=== PATIENT | female | born 1985 | race African-American/Black ===

== ENCOUNTER 2022-12-16 13:03 | Emergency (ER) | payer MEDICAID, OTHER, SELFPAY ==
--- NOTE | ~2022-12-16 | US_ITS ---
EXAMINATION: US ABDOMEN LIMITED CLINICAL INFORMATION: Right upper quadrant pain. COMPARISON: None available. TECHNIQUE: Real-time imaging of the right upper quadrant abdominal viscera. FINDINGS: PANCREAS: Normal. LIVER: Normal. The liver is normal in size. The liver contour is normal. Parenchymal echogenicity is normal. No focal hepatic lesion. There is no intrahepatic biliary duct dilatation seen. GALLBLADDER: Normal. The gallbladder is physiologically distended without evidence of stones, sludge, polyps, wall thickening or pericholecystic fluid. COMMON BILE DUCT: Normal in caliber measuring 0.2 cm in diameter. RIGHT KIDNEY: Normal. No hydronephrosis. No renal calculi or focal parenchymal lesions. The kidney measures 10 cm in maximum dimension. FREE FLUID: None. US/US abdomen limited IMPRESSION: Normal right upper quadrant ultrasound.
[2022-12-16 13:08] VITALS: BP 122/79; PULSE 79; RESP 17; TEMP 36.5; O2SAT 100; BMI 24.9
--- NOTE | 2022-12-16 13:10 | ED.ABDPAIN ---
HPI - Abdominal Pain General Chief Complaint: Abdominal Pain <FOREST Grimes - Last Filed: 12/16/22 13:16> Stated Complaint: abd pain <FOREST Grimes - Last Filed: 12/16/22 13:16> Time Seen by Provider: 12/16/22 18:18 <FOREST Grimes - Last Filed: 12/16/22 13:16> Source: patient <Seth Kang MD - Last Filed: 12/17/22 01:12> Mode of arrival: ambulatory <Seth Kang MD - Last Filed: 12/17/22 01:12> Limitations: no limitations <Seth Kang MD - Last Filed: 12/17/22 01:12> History of Present Illness HPI narrative: Patient no significant past medical history been constipated for last 3 days complaining of pain in right upper abdomen since yesterday got worse today does not feel hungry denies any nausea or vomiting no fever or chills <Seth Kang MD - Last Filed: 12/17/22 01:12> Related Data Allergies/Adverse Reactions: Allergies Allergy/AdvReac Type Severity Reaction Status Date / Time No Known Allergies Allergy Verified 12/16/22 13:13 <FOREST Grimes - Last Filed: 12/16/22 13:16> Review of Systems Review of Systems Yes all other systems are reviewed and are negative <Seth Kang MD - Last Filed: 12/17/22 01:12> [facility] Social History Social History: Social History Advance Directives: No Advance Directives Information Provided: No <FOREST Grimes - Last Filed: 12/16/22 13:16> Physical Exam ED Vital Signs: Vital Signs - 24 hr 12/16/22 13:08 12/16/22 18:22 12/16/22 20:33 Temperature 97.7 F 97.5 F 97.3 F Pulse Rate 79 74 70 Respiratory Rate 17 16 18 Blood Pressure 122/79 127/87 119/72 Pulse Oximetry 100 100 100 Oxygen Delivery Method Room Air Room Air Room Air BMI result Body Mass Index 24.9 <FOREST Grimes - Last Filed: 12/16/22 13:16> Vital Signs - 24 hr 12/16/22 13:08 12/16/22 18:22 12/16/22 20:33 Temperature 97.7 F 97.5 F 97.3 F Pulse Rate 79 74 70 Respiratory Rate 17 16 18 Blood Pressure 122/79 127/87 119/72 Pulse Oximetry 100 100 100 Oxygen Delivery Method Room Air Room Air Room Air BMI result Body Mass Index 24.9 <Seth Kang MD - Last Filed: 12/17/22 01:12> Appearance: Alert. Oriented X3. No acute distress. Eyes: No pallor or icterus ENT: Pharynx normal. Oral Mucosa moist Neck: Normal inspection. Neck supple. CVS: Normal heart rate and rhythm. Pulses normal. Respiratory: No respiratory distress. Equal air entry bilateral, Abdomen: Soft , tender in right upper quadrant with guarding no rebound tenderness Bowel sounds are present, no mass palpable, no CVA tenderness Skin: Skin warm and dry. Normal skin color. Normal skin turgor. Extremities: No lower extremity edema. No calf tenderness Neuro: Oriented X 3. No motor deficit. <Seth Kang MD - Last Filed: 12/17/22 01:12> Course Course Course Narrative: RME: 37yo F Creole speaking w/no sig PMHx c/o RLQ abdominal pain radiating to R side since last night w/assoc dysuria. Denies fever, N/V, hematuria abd soft w/suprapubic/RUQ tenderness, no rebound or guarding Labs, UA, U-, CTAP ordered Full HPI, ROS and PE to be performed by primary ED provider. <FOREST Grimes - Last Filed: 12/16/22 13:16> Medical Decision Making Medical Decision Making MDM Narrative: Patient lab stable ultrasound negative for acute likely gastritis as a cause of the pain discharge patient taking p.o. fluids now <Seth Kang MD - Last Filed: 12/17/22 01:12> Lab Data [facility] Lab Attestation statement: I reviewed the patient's lab results. <Seth Kang MD - Last Filed: 12/17/22 01:12> Result Diagrams: 12/16/22 15:54 12/16/22 15:54 <FOREST Grimes - Last Filed: 12/16/22 13:16> Labs: Lab Results 12/16/22 12/16/22 12/16/22 Range/Units 14:19 14:19 15:54 WBC 8.6 (4.8-10.8) X10*3/uL RBC 5.19 (4.20-5.50) X10*6/uL Hgb 15.3 (12.0-16.0) g/dl Hct 46.4 (37.0-47.0) % MCV 89.4 (80.0-98.0) fL MCH 29.5 (27.0-33.0) pg MCHC 33.0 (31.0-35.0) g/dl RDW 11.2 (11.0-16.0) % Plt Count 233 (160-400) X10*3/uL MPV 10.2 (9.4-12.3) fL Immature Gran % (Auto) 0.2 (0.0-0.4) % Neut % (Auto) 64.7 (45-73) % Lymph % (Auto) 27.5 (20-40) % [place] % (Auto) 4.7 (2-11) % Eos % (Auto) 2.6 (0-4) % Baso % (Auto) 0.3 (0-2) % Lymph # (Auto) 2.4 (1.2-4.9) X10*3/uL [place] # (Auto) 0.4 (0.1-1.2) X10*3/uL Eos # (Auto) 0.2 (0.0-0.4) X10*3/uL Baso # (Auto) 0.0 (0.0-0.2) X10*3/uL Abs Immat Gran (auto) 0.02 (0.00-0.03) X10*3/uL Absolute Neuts (auto) 5.6 (2.0-8.3) x10*3/uL Absolute Nucleated RBC 0.000 (0.0-0.012) X10*3/uL Nucleated RBC % (auto) 0.0 (0.0-0.2) /100WBC Sodium (135-145) mmol/L Potassium (3.3-5.1) mmol/L Chloride (96-108) mmol/L Carbon Dioxide (22-29) mmol/L Anion Gap (12-20) BUN (9-16) mg/dL Creatinine (0.5-1.4) mg/dL Estim Creat Clear Calc Estimated GFR Random Glucose (60-115) mg/dL Calcium (8.4-10.2) mg/dL Magnesium (1.6-2.6) mg/dL Total Bilirubin (0.0-1.0) mg/dL Direct Bilirubin (0.0-0.5) mg/dL AST (5-31) U/L ALT (0-31) U/L Alkaline Phosphatase (39-117) U/L Total Protein (6.5-8.0) g/dL Albumin (3.5-5.0) g/dL Lipase (8-78) U/L Urine Color Yellow Urine Appearance Clear Urine pH 5.5 (5.0-9.0) Ur Specific [place] 1.020 (1.005-1.025) Urine Protein Negative (Neg-Trace) mg/dL Urine Glucose (UA) Negative (Negative) mg/dL Urine Ketones Negative (Negative) mg/dL Urine Blood Negative (Negative) Urine Nitrite Negative (Negative) Ur Leukocyte Esterase Small (1+) H (Negative) Urine RBC 0-2 (0-2) /HPF Urine WBC 0-5 (0-5) /HPF Ur Squamous Epith Cells 3-5 (0-2) /HPF Urine Bacteria Trace (None Seen) Hyaline Casts 0-2 (0-2) /LPF Urine Test NEGATIVE (NEGATIVE) 12/16/22 Range/Units 15:54 WBC (4.8-10.8) X10*3/uL RBC (4.20-5.50) X10*6/uL Hgb (12.0-16.0) g/dl Hct (37.0-47.0) % MCV (80.0-98.0) fL MCH (27.0-33.0) pg MCHC (31.0-35.0) g/dl RDW (11.0-16.0) % Plt Count (160-400) X10*3/uL MPV (9.4-12.3) fL Immature Gran % (Auto) (0.0-0.4) % Neut % (Auto) (45-73) % Lymph % (Auto) (20-40) % [place] % (Auto) (2-11) % Eos % (Auto) (0-4) % Baso % (Auto) (0-2) % Lymph # (Auto) (1.2-4.9) X10*3/uL [place] # (Auto) (0.1-1.2) X10*3/uL Eos # (Auto) (0.0-0.4) X10*3/uL Baso # (Auto) (0.0-0.2) X10*3/uL Abs Immat Gran (auto) (0.00-0.03) X10*3/uL Absolute Neuts (auto) (2.0-8.3) x10*3/uL Absolute Nucleated RBC (0.0-0.012) X10*3/uL Nucleated RBC % (auto) (0.0-0.2) /100WBC Sodium 141 (135-145) mmol/L Potassium 4.0 (3.3-5.1) mmol/L Chloride 108 (96-108) mmol/L Carbon Dioxide 24 (22-29) mmol/L Anion Gap 13 (12-20) BUN 14 (9-16) mg/dL Creatinine 0.84 (0.5-1.4) mg/dL Estim Creat Clear Calc 84.9 Estimated GFR > 60 Random Glucose 85 (60-115) mg/dL Calcium 9.7 (8.4-10.2) mg/dL Magnesium 2.2 (1.6-2.6) mg/dL Total Bilirubin 0.4 (0.0-1.0) mg/dL Direct Bilirubin 0.2 (0.0-0.5) mg/dL AST 16 (5-31) U/L ALT 12 (0-31) U/L Alkaline Phosphatase 65 (39-117) U/L Total Protein 8.0 (6.5-8.0) g/dL Albumin 4.4 (3.5-5.0) g/dL Lipase 17 (8-78) U/L Urine Color Urine Appearance Urine pH (5.0-9.0) Ur Specific [place] (1.005-1.025) Urine Protein (Neg-Trace) mg/dL Urine Glucose (UA) (Negative) mg/dL Urine Ketones (Negative) mg/dL Urine Blood (Negative) Urine Nitrite (Negative) Ur Leukocyte Esterase (Negative) Urine RBC (0-2) /HPF Urine WBC (0-5) /HPF Ur Squamous Epith Cells (0-2) /HPF Urine Bacteria (None Seen) Hyaline Casts (0-2) /LPF Urine Test (NEGATIVE) <FOREST Grimes - Last Filed: 12/16/22 13:16> Lab Results 12/16/22 12/16/22 12/16/22 Range/Units 14:19 14:19 15:54 WBC 8.6 (4.8-10.8) X10*3/uL RBC 5.19 (4.20-5.50) X10*6/uL Hgb 15.3 (12.0-16.0) g/dl Hct 46.4 (37.0-47.0) % MCV 89.4 (80.0-98.0) fL MCH 29.5 (27.0-33.0) pg MCHC 33.0 (31.0-35.0) g/dl RDW 11.2 (11.0-16.0) % Plt Count 233 (160-400) X10*3/uL MPV 10.2 (9.4-12.3) fL Immature Gran % (Auto) 0.2 (0.0-0.4) % Neut % (Auto) 64.7 (45-73) % Lymph % (Auto) 27.5 (20-40) % [place] % (Auto) 4.7 (2-11) % Eos % (Auto) 2.6 (0-4) % Baso % (Auto) 0.3 (0-2) % Lymph # (Auto) 2.4 (1.2-4.9) X10*3/uL [place] # (Auto) 0.4 (0.1-1.2) X10*3/uL Eos # (Auto) 0.2 (0.0-0.4) X10*3/uL Baso # (Auto) 0.0 (0.0-0.2) X10*3/uL Abs Immat Gran (auto) 0.02 (0.00-0.03) X10*3/uL Absolute Neuts (auto) 5.6 (2.0-8.3) x10*3/uL Absolute Nucleated RBC 0.000 (0.0-0.012) X10*3/uL Nucleated RBC % (auto) 0.0 (0.0-0.2) /100WBC Sodium (135-145) mmol/L Potassium (3.3-5.1) mmol/L Chloride (96-108) mmol/L Carbon Dioxide (22-29) mmol/L Anion Gap (12-20) BUN (9-16) mg/dL Creatinine (0.5-1.4) mg/dL Estim Creat Clear Calc Estimated GFR Random Glucose (60-115) mg/dL Calcium (8.4-10.2) mg/dL Magnesium (1.6-2.6) mg/dL Total Bilirubin (0.0-1.0) mg/dL Direct Bilirubin (0.0-0.5) mg/dL AST (5-31) U/L ALT (0-31) U/L Alkaline Phosphatase (39-117) U/L Total Protein (6.5-8.0) g/dL Albumin (3.5-5.0) g/dL Lipase (8-78) U/L Urine Color Yellow Urine Appearance Clear Urine pH 5.5 (5.0-9.0) Ur Specific [place] 1.020 (1.005-1.025) Urine Protein Negative (Neg-Trace) mg/dL Urine Glucose (UA) Negative (Negative) mg/dL Urine Ketones Negative (Negative) mg/dL Urine Blood Negative (Negative) Urine Nitrite Negative (Negative) Ur Leukocyte Esterase Small (1+) H (Negative) Urine RBC 0-2 (0-2) /HPF Urine WBC 0-5 (0-5) /HPF Ur Squamous Epith Cells 3-5 (0-2) /HPF Urine Bacteria Trace (None Seen) Hyaline Casts 0-2 (0-2) /LPF Urine Test NEGATIVE (NEGATIVE) 12/16/22 Range/Units 15:54 WBC (4.8-10.8) X10*3/uL RBC (4.20-5.50) X10*6/uL Hgb (12.0-16.0) g/dl Hct (37.0-47.0) % MCV (80.0-98.0) fL MCH (27.0-33.0) pg MCHC (31.0-35.0) g/dl RDW (11.0-16.0) % Plt Count (160-400) X10*3/uL MPV (9.4-12.3) fL Immature Gran % (Auto) (0.0-0.4) % Neut % (Auto) (45-73) % Lymph % (Auto) (20-40) % [place] % (Auto) (2-11) % Eos % (Auto) (0-4) % Baso % (Auto) (0-2) % Lymph # (Auto) (1.2-4.9) X10*3/uL [place] # (Auto) (0.1-1.2) X10*3/uL Eos # (Auto) (0.0-0.4) X10*3/uL Baso # (Auto) (0.0-0.2) X10*3/uL Abs Immat Gran (auto) (0.00-0.03) X10*3/uL Absolute Neuts (auto) (2.0-8.3) x10*3/uL Absolute Nucleated RBC (0.0-0.012) X10*3/uL Nucleated RBC % (auto) (0.0-0.2) /100WBC Sodium 141 (135-145) mmol/L Potassium 4.0 (3.3-5.1) mmol/L Chloride 108 (96-108) mmol/L Carbon Dioxide 24 (22-29) mmol/L Anion Gap 13 (12-20) BUN 14 (9-16) mg/dL Creatinine 0.84 (0.5-1.4) mg/dL Estim Creat Clear Calc 84.9 Estimated GFR > 60 Random Glucose 85 (60-115) mg/dL Calcium 9.7 (8.4-10.2) mg/dL Magnesium 2.2 (1.6-2.6) mg/dL Total Bilirubin 0.4 (0.0-1.0) mg/dL Direct Bilirubin 0.2 (0.0-0.5) mg/dL AST 16 (5-31) U/L ALT 12 (0-31) U/L Alkaline Phosphatase 65 (39-117) U/L Total Protein 8.0 (6.5-8.0) g/dL Albumin 4.4 (3.5-5.0) g/dL Lipase 17 (8-78) U/L Urine Color Urine Appearance Urine pH (5.0-9.0) Ur Specific [place] (1.005-1.025) Urine Protein (Neg-Trace) mg/dL Urine Glucose (UA) (Negative) mg/dL Urine Ketones (Negative) mg/dL Urine Blood (Negative) Urine Nitrite (Negative) Ur Leukocyte Esterase (Negative) Urine RBC (0-2) /HPF Urine WBC (0-5) /HPF Ur Squamous Epith Cells (0-2) /HPF Urine Bacteria (None Seen) Hyaline Casts (0-2) /LPF Urine Test (NEGATIVE) <Seth Kang MD - Last Filed: 12/17/22 01:12> Medications Administered Discontinued Medications Generic Name Dose Route Start Last Admin Trade Name Freq PRN Reason Stop Dose Admin Sodium Chloride 1,000 mls @ 999 mls/hr 12/16/22 18:35 12/16/22 19:28 Ns IV 12/16/22 19:35 999 mls/hr .Q1H1M ONE Administration Ketorolac Tromethamine 30 mg 12/16/22 18:35 12/16/22 19:28 Ketorolac Tromethamine 30 Mg/Ml Vial IVPUSH 12/16/22 18:36 30 mg ONCE ONE Administration <FOREST Grimes - Last Filed: 12/16/22 13:16> Medications Administered Discontinued Medications Generic Name Dose Route Start Last Admin Trade Name Freq PRN Reason Stop Dose Admin Sodium Chloride 1,000 mls @ 999 mls/hr 12/16/22 18:35 12/16/22 19:28 Ns IV 12/16/22 19:35 999 mls/hr .Q1H1M ONE Administration Ketorolac Tromethamine 30 mg 12/16/22 18:35 12/16/22 19:28 Ketorolac Tromethamine 30 Mg/Ml Vial IVPUSH 12/16/22 18:36 30 mg ONCE ONE Administration <Seth Kang MD - Last Filed: 12/17/22 01:12> Discharge Plan Discharge Clinical Impression: Abdominal pain <FOREST Grimes - Last Filed: 12/16/22 13:16> Patient Disposition: Home, Self-Care <FOREST Grimes - Last Filed: 12/16/22 13:16> Instructions: Abdominal Pain (ED) <FOREST Grimes - Last Filed: 12/16/22 13:16> Additional Instructions: Cause of abdominal pain is not very clear Your labs and ultrasound is normal Drink plenty of fluids Report to the ER if pain gets worse <FOREST Grimes - Last Filed: 12/16/22 13:16> Interventions: ED Discharge Assessment Last Done: 12/16/22 21:45 <FOREST Grimes - Last Filed: 12/16/22 13:16> Discharge Date/Time: 12/16/22 21:46 <FOREST Grimes - Last Filed: 12/16/22 13:16>
[2022-12-16 14:29] LABS: UPreg QC Valid YES; Urine Pregnancy NEGATIVE (NEGATIVE)
[2022-12-16 14:30] LABS: Appearance Urine Clear; Color Urine Yellow; Glucose Urine UA Negative (Negative); Leukocyte Esterase Urine Small (1+) (Negative); Nitrite Urine Negative (Negative); PH 5.5 (5.0-9.0); UMIC TRIGGER UACC YES; Urine Blood Negative (Negative); Urine Ketones Negative (Negative); Urine Protein Negative (Neg-Trace)
[2022-12-16 14:40] LABS: Bacteria Urine Trace (None Seen); Hyaline Casts Urine 0-2 /LPF (0-2); RBC Urine 0-2 /HPF (0-2); UACC Culture Trigger YES; WBC Urine 0-5 /HPF (0-5)
[2022-12-16 16:03] LABS: MANUAL DIFF FLAG NO
[2022-12-16 16:07] LABS: Basophils Percent Auto 0.3 % (0-2); Eosinophils Absolute Auto 0.2 X10*3/uL (0.0-0.4); Eosinophils Percent Auto 2.6 % (0-4); Hematocrit 46.4 % (37.0-47.0); Hemoglobin 15.3 g/dl (12.0-16.0); Imm Gran Abs Auto 0.02 X10*3/uL (0.00-0.03); Imm Gran Pct Auto 0.2 % (0.0-0.4); Lymphocytes Absolute Auto 2.4 X10*3/uL (1.2-4.9); Lymphocytes Percent Auto 27.5 % (20-40); Mean Corpuscular Hemoglobin 29.5 pg (27.0-33.0); Mean Corpuscular Volume 89.4 fL (80.0-98.0); Mean Platelet Volume 10.2 fL (9.4-12.3); Monocytes Absolute Auto 0.4 X10*3/uL (0.1-1.2); Monocytes Percent Auto 4.7 % (2-11); Neutrophils Absolute Auto 5.6 x10*3/uL (2.0-8.3); Neutrophils Percent Auto 64.7 % (45-73); Platelet Count 233 X10*3/uL (160-400); Red Blood Count 5.19 X10*6/uL (4.20-5.50); Red Cell Distribution Width 11.2 % (11.0-16.0); White Blood Count 8.6 X10*3/uL (4.8-10.8)
[2022-12-16 16:24] LABS: Alanine Aminotransferase 12 U/L (0-31); Albumin Level 4.4 g/dL (3.5-5.0); Alkaline Phosphatase 65 U/L (39-117); Anion Gap 13 (12-20); Aspartate Amino Transferase 16 U/L (5-31); Bilirubin Direct 0.2 mg/dL (0.0-0.5); Bilirubin Total 0.4 mg/dL (0.0-1.0); Blood Urea Nitrogen 14 mg/dL (9-16); Calcium 9.7 mg/dL (8.4-10.2); Carbon Dioxide 24 mmol/L (22-29); Chloride 108 mmol/L (96-108); Creatinine Clr Calc Pharmacy 84.9; Estimated Glomerular Filt Rate > 60; Glucose Random 85 mg/dL (60-115); Lipase 17 U/L (8-78); Magnesium 2.2 mg/dL (1.6-2.6); Sodium 141 mmol/L (135-145)
[2022-12-16 18:22] VITALS: BP 127/87; PULSE 74; RESP 16; TEMP 36.4; O2SAT 100
[2022-12-16] MEDS: Ketorolac Tromethamine 30 MG/ML VIAL IVPUSH (19:28)
[2022-12-16] MEDS: 0.9 % Sodium Chloride 1,000 ML 999 ML IV (19:28)
[2022-12-16 20:33] VITALS: BP 119/72; PULSE 70; RESP 18; TEMP 36.3; O2SAT 100
== END 2022-12-16 21:46 | disposition home or self-care (01) ==
LOC: HO.ED 21:27
PROVIDERS: Physician Assistant; Emergency Provider Internal Medicine
DX: R10.11 Right upper quadrant pain (principal)
CPT/HCPCS: 36415; 76705; 80048; 80076; 81001; 81025; 83690; 83735; 85025; 87086; 96374; 99284; J1885

== ENCOUNTER 2023-02-23 19:53 | Outpatient (REF) | payer MEDICAID, OTHER, SELFPAY ==
[2023-02-25 16:20] LABS: H Pylori Breath Test Negative (Negative)
== END 2023-02-23 19:54 | disposition home or self-care (01) ==
LOC: HO.HHCLNP 19:53
PROVIDERS: Visit Provider Registered Nurse
DX: R10.13 Epigastric pain (principal)
CPT/HCPCS: 36415; 83013

== ENCOUNTER 2023-12-14 15:29 | Outpatient (REF) | payer OTHER, SELFPAY ==
[2023-12-14 17:48] LABS: Alanine Aminotransferase 19 U/L (0-31); Albumin Level 3.9 g/dL (3.5-5.0); Alkaline Phosphatase 46 U/L (39-117); Anion Gap 12 (12-20); Aspartate Amino Transferase 20 U/L (5-31); Bilirubin Total 0.4 mg/dL (0.0-1.0); Blood Urea Nitrogen 11 mg/dL (9-16); Calcium 9.5 mg/dL (8.4-10.2); Carbon Dioxide 23 mmol/L (22-29); Chloride 109 mmol/L (96-108); Cholesterol 141 mg/dL (<200); Estimated Glomerular Filt Rate > 60; Glucose Random 69 mg/dL (60-115); HDL Cholesterol 55 mg/dL (>40); LDL Cholesterol Calculated 72 mg/dL (<100); Potassium 3.8 mmol/L (3.3-5.1); Sodium 140 mmol/L (135-145); Total Protein 7.3 g/dL (6.5-8.0); Triglycerides 73 mg/dL (<150)
[2023-12-15 05:51] LABS: CT PCR NOT DETECTED (Not Detect.); NG PCR NOT DETECTED (Not Detect.)
[2023-12-16 07:03] LABS: RPR Rapid Plasma Reagin NON-REACTIVE (NON-REACTIVE)
[2023-12-17 08:28] LABS: HIV RNA PCR Qn Copies Not Detected Copies/mL; HIV RNA PCR Qn Log Copies Not Detected Log cps/mL
== END 2023-12-14 15:30 | disposition home or self-care (01) ==
LOC: HO.HHCL 15:29
PROVIDERS: Visit Provider Nurse Practitioner Family
DX: Z00.00 Encounter for general adult medical examination without abnormal findings (principal); Z11.3 Encounter for screening for infections with a predominantly sexual mode of transmission
CPT/HCPCS: 0353U; 80053; 80061; 86592; 87536; 87900

== ENCOUNTER 2024-11-21 15:50 | Outpatient (REF) | payer MEDICAID, SELFPAY ==
[2024-11-21 16:45] LABS: MANUAL DIFF FLAG NO
[2024-11-21 17:12] LABS: Basophils Percent Auto 0.5 % (0-2); Eosinophils Absolute Auto 0.2 X10*3/uL (0.0-0.4); Eosinophils Percent Auto 1.8 % (0-4); Imm Gran Abs Auto 0.02 X10*3/uL (0.00-0.03); Imm Gran Pct Auto 0.2 % (0.0-0.4); Lymphocytes Absolute Auto 2.7 X10*3/uL (1.2-4.9); Lymphocytes Percent Auto 32.4 % (20-40); Mean Corpuscular HGB Conc 33.3 g/dl (31.0-35.0); Mean Corpuscular Hemoglobin 28.7 pg (27.0-33.0); Mean Corpuscular Volume 86.2 fL (80.0-98.0); Mean Platelet Volume 9.7 fL (9.4-12.3); Monocytes Absolute Auto 0.6 X10*3/uL (0.1-1.2); Monocytes Percent Auto 6.7 % (2-11); Neutrophils Absolute Auto 4.8 x10*3/uL (2.0-8.3); Neutrophils Percent Auto 58.4 % (45-73); Platelet Count 214 X10*3/uL (160-400); Red Blood Count 4.87 X10*6/uL (4.20-5.50); Red Cell Distribution Width 11.5 % (11.0-16.0); White Blood Count 8.2 X10*3/uL (4.8-10.8)
[2024-11-21 17:52] LABS: Alanine Aminotransferase 19 U/L (0-31); Albumin Level 4.2 g/dL (3.5-5.0); Alkaline Phosphatase 65 U/L (39-117); Anion Gap 9 (12-20); Aspartate Amino Transferase 24 U/L (5-31); Bilirubin Total 0.6 mg/dL (0.0-1.0); Blood Urea Nitrogen 13 mg/dL (9-16); Calcium 9.3 mg/dL (8.4-10.2); Carbon Dioxide 25 mmol/L (22-29); Chloride 108 mmol/L (96-108); Estimated Glomerular Filt Rate > 60; Glucose Random 89 mg/dL (60-115); Potassium 3.7 mmol/L (3.3-5.1); Sodium 138 mmol/L (135-145); Total Protein 7.2 g/dL (6.5-8.0)
--- OUTSIDE RECORDS SUMMARY | 2024-11-21 18:30 | XMS_ITS | Referral Summary ---
Author Organization [facility] Address [address] [place] [address] Care Team Providers Care Auto Washer Name Role Phone Ursula Ferrari NP Primary Care Provider [phone] Allergies No known active allergies Medications [...] on file Insurance HSNO/FREE CARE Care Teams Auto Washer Relationship Specialty Start Date End Date Ursula Ferrari NP [address] [place] [address] PCP - General Family Medicine 03/10/24
--- OUTSIDE RECORDS SUMMARY | 2024-11-21 18:30 | XMS_ITS | Encounter Summary ---
Author Organization [employer] Address [address] [place] [address] [address] [place] [address] Care Team Providers Care Harness Builder Name Role Phone Shruti Frost NP Primary Care Provider [phone] Encounter Details Date Type Department Care Team (Late st Contact Info) Description 02/23/2023 Orders Only [facility] [address] [place] [address] Dayan Hernandez FNP [address] [place], [place] [phone] Epigastric pain Social History Tobacco Use Types [...] Description 11/24/2024 2:00 PM EDT Office Visit [facility] ADULT DENTAL [address] [place] [address] Elissa iLvingston DDS [address] [place] [address] 01/24/2025 2:00 PM EDT Office Visit [facility] ADULT DENTAL [address] [place] [address] Jigna Younger documented as of this encounter Visit Diagnoses Diagnosis Epigastric pain Abdominal pain, epigastric documented in this encounter Care Teams Harness Builder Relationship Specialty Start Date End Date Shruti Frost NP [address] [place] [address] PCP - General Family Medicine 04/19/24 documented as of this encounter
--- OUTSIDE RECORDS SUMMARY | 2024-11-21 18:30 | XMS_ITS | Clinical Summary ---
Author Organization [employer] Address [address] [place] [address] 7[address] [place] [address] Care Team Providers Care Saturation Equipment Operator Name Role Phone Shruti Frost NP Primary Care Provider [phone] Allergies No known active allergies Medications polycarbophil [...] 03/16/2023 06/14/2024 Overview (03/16/2023): MVI Referral to PADDER CUSHION Encounters Date Type Department Care Team Description 10/25/2024 2:30 PM EDT Office Visit [facility] [address] [place] [address] Elissa Livingston DDS Dental calculus (Primary Dx); Dental caries; Encounter for dental examination; Symptomatic periapical periodontitis 10/21/2024 Population Health Risk Score [facility] () [address] [phone] Provider, Population Health Generic 10/04/2024 1:45 PM EST Office Visit [facility] [address] [place] [phone] Shruti Frost NP Epigastric pain (Primary Dx) 09/27/2024 2:00 PM EST Office Visit [facility] [address] [place] [address] Seth Solorzano DDS Dental abscess (Primary Dx); Failing root canal 09/27/2024 Telephone [facility] [address] [place] [phone] Charito Andersen MA Chart Prep 09/05/2024 Refill [facility] [address] [place] [phone] Shruti Frost NP Gastroesophageal reflux disease with esophagitis, unspecified whether hemorrhage 08/25/2024 11:30 AM EST Office Visit [facility] [address] [place] [address] Elissa Livingston DDS Dental caries (Primary Dx); Symptomatic periapical periodontitis; Failing root canal 08/25/2024 10:20 AM EST Office Visit [facility] [address] [place] [address] Sugar Zuniga DO Epigastric pain (Primary Dx); Recurrent headache 08/25/2024 Orders Only [facility] [address] [place] [address] Ursula Ferrari FNP from Last 3 Months [...] Description 11/24/2024 2:00 PM EDT Office Visit [facility] [address] [place] [address] Elissa Livingston, DDS [address] [place], [place] [phone] 01/24/2025 2:00 PM EDT Office Visit [facility] [address] [place] [address] Jigna Younger Health Maintenance Due Date Last [...] Procedure Name Priority Date/Time Associated Diagnosis Comments TSH W/REFLEX TO FT4 Routine 11/21/2024 4 :43 PM EDT CBC WITH AUTO DIFFERENTIAL Routine 11/21/2024 4:43 [...] Recently Relevant to Health Maintenance Results * TSH with Reflex to Free T4 (11/21/2024 4:43 PM EDT) TSH reflex Free T4 1.00 0.32 - 4.0 uIU/mL [facility] 11/21/2024 4:43 PM EDT 11/21/2024 4:44 PM EDT us Generic External Data Provider LAB BLOOD ORDERAB LES Final Result [facility] [address] [place] [address] [phone] * CBC auto differential (11/21/2024 4:43 PM EDT) Only the most recent of2 resultswithin the time period is included. White Blood Count 8.2 4.8 - 10.8 X10*3/uL [facility] Red Blood Count 4.87 4.20 - 5.50 X10*6/uL [facility] Hemoglobin 14.0 12.0 - 16.0 g/dl [facility] Hematocrit 42.0 37.0 - 47.0 % [facility] Mean Corpuscular Volume 86.2 80.0 - 98.0 fL [facility] Mean Corpuscular Hemoglobin 28.7 27.0 - 33.0 pg [facility] Mean Corpuscular HGB Conc 33.3 31.0 - 35.0 g/dl [facility] Red Cell Distribution Width 11.5 11.0 - 16.0 % [facility] Platelet Count 214 160 - 400 X10*3/uL [facility] Mean Platelet Volume 9.7 9.4 - 12.3 fL [facility] Neutrophils Percent Auto 58.4 45 - 73 % [facility] Imm Gran Pct Auto 0.2 0.0 - 0.4 % [facility] Lymphocytes Percent Auto 32.4 20 - 40 % [facility] Monocytes Percent Auto 6.7 2 - 11 % [facility] Eosinophils Percent Auto 1.8 0 - 4 % [facility] Basophils Percent Auto 0.5 0 - 2 % [facility] NRBC Pct Auto 0.0 0.0 - 0.2 /100WBC [facility] Neutrophils Absolute Auto 4.8 2.0 - 8.3 x10*3/uL [facility] Imm Gran Abs Auto 0.02 0.00 - 0.03 X10*3/uL [facility] Lymphocytes Absolute Auto 2.7 1.2 - 4.9 X10*3/uL [facility] Monocytes Absolute Auto 0.6 0.1 - 1.2 X10*3/uL [facility] Eosinophils Absolute Auto 0.2 0.0 - 0.4 X10*3/uL [facility] Basophils Absolute Auto 0.0 0.0 - 0.2 X10*3/uL [facility] NRBC Abs Auto 0.000 0.0 - 0.012 X10*3/uL [facility] Blood Venous blood specimen / Unknown 11/21/2024 4:43 PM EDT 11/21/2024 4:44 PM EDT us Sugar Lennonsouleymanedavid DO LAB BLOOD ORDERABLES Final R esult Performing Organization Address City/[facility]/ZIP Co de Phone Number [facility] [address] [place] [address] [phone] * (ABNORMAL) Comprehensive Metabolic Panel (11/21/2024 4:43 PM EDT) Only the most recent of2 resultswithin the time period is included. Sodium 138 135 - 145 mmol/L [facility] Potassium 3.7 3.3 - 5.1 mmol/L [facility] Chloride 108 96 - 108 mmol/L [facility] Carbon Dioxide 25 22 - 29 mmol/L [facility] Anion Gap 9(L) 12 - 20 [facility] Urea Nitrogen (BUN) 13 9 - 16 mg/dL [facility] Creatinine, Serum 0.81 0.5 - 1.4 mg/dL [facility] Estimated Glomerular Filt Rate >60 [facility] Comment:Chronic Kidney Disea se: Estimated GFR < 60 mL/min/1.66v6Gdsqvy Kidney Disease: Estimated GFR < 15 mL/min/1.73m2 Glucose 89 60 - 115 mg/dL [facility] Calcium 9.3 8.4 - 10.2 mg/dL [facility] Bilirubin, Total 0.6 0.0 - 1.0 mg/dL [facility] Aspartate Amino Transferase 24 5 - 31 U/L [facility] Alanine Aminotransferase 19 0 - 31 U/L [facility] Total Protein 7.2 6.5 - 8.0 g/dL [facility] Albumin Level 4.2 3.5 - 5.0 g/dL [facility] Alkaline Phosphatase 65 39 - 117 U/L [facility] Blood Venous blood specimen / Unknown 11/21/2024 4:43 PM EDT 11/21/2024 4:44 PM EDT us Shruti Frost PARTNERSHIP MARKETING MANAGER LAB BLOOD ORDERABLES Final Resul t [facility] [address] [place] [phone] * US Abdomen Complete (10/10/2024 8:51 AM EST) Anatomical Region Laterality Modality Abdomen Ultrasound 10/10/2024 8:51 AM EST Narrative 10/10/2024 9:19 AM EST ? [facility] ?[address] ?[place] [address] ? Ultrasound Report ? Signed ? Patient: Boyle,Rilda M ?MR#: [id number] ?? 02 ? : 1985 ?Acct:[id number] ? Age/Sex: 39 / F ?ADM Date: 10/10/24 ? Loc: HO.US ? Attending Dr: Sugar Zuniga DO ? Ordering Physician: Sugar Zuniga DO ?? Date of Service: 10/10/24 ?? Procedure(s): US abdomen complete ?? Accession Number(s): [id number] ? cc: Sugar Zuniga DO ? .EXAMINATION: [...] DD/ 0851 ? TD/TT: 10/10/24 0900 ? Aircraft Instrument Repairer: ? Procedure Note Donotuseinterpreter, Image - 10/10/2024 [place] [address] Ultrasound Report Signed Patient: Magda Boyle MMR#: [id number] 02 : 1985Acct:[id number] Age/Sex: 39 / FADM Date: 10/10/24 Loc: HO.US Attending Dr: Sugar Zuniga DO Ordering Physician: Sugar Zuniga DO Date of Service: 10/10/24 Procedure(s): US abdomen complete Accession Number(s): [id number] cc: Sugar Zuniga DO .EXAMINATION: US ABDOMEN [...] Milton Galicia MD 10/10/2024 09:16 AM EST RP Dictated By: Milton Self MD Signed By: <Electronically signed by Milton Benitez MDin OV> 10/10/2416 DD/ 0851 TD/TT: 10/10/24 09 Aircraft Instrument Repairer: us Sugar Zuniga DO IMG US PROCEDURES Final Resu lt * HIV-1 RNA, Quantitative, Real-Time PCR with Reflex to Genotype (RTI, PI, Integrase) (08/25/2024 11:30 AM EST) HIV RNA PCR Qn Copies Not Detected Copies/mL [facility] HIV RNA PCR Qn Log Copies Not Detected Log cps/mL [facility] Comment:Reference Range: Not Detected copies/mL Not Detected Log copies/mLThe test was performed using Real-Time Polymerase ChainReaction.Reportable Range: 20 copies/mL to 10,000,000 copies/mL(1.30 Log copies/mL to 7.00 Log copies/mL).THIS TEST WAS PERFORMED AT:[employer]/[facility] [place] [address]GAWRYGHJERRY COLIN MD,PHD HIV-1 Genotype Progressive [facility] HIV 1 Genotype [facility] Comment:Test not indicated. 08/25/2024 11:3 0 AM EST 08/25/2024 1:03 PM EST us Ursula Ferrari [facility] LAB BLOOD ORDERABLES Final Resu lt [facility] [address] [place] [phone] * RPR (Monitor) with Reflex to??Titer (08/25/2024 11:30 AM EST) RPR (Monitor) w/Refl Titer NON-REACTI VE NON-REACT LIEN [facility] Comment:THIS TEST WAS PERFOR MED AT:[facility] [place] [phone] KURTZ MD Rapid Plasma Reagin Ab Titer TNP [facility] 08/25/2024 11:3 0 AM EST 08/25/2024 1:03 PM EST us Ursula Ferrari AUTOMOTIVE PROFESSIONAL LAB BLOOD ORDERABLES Final Resu lt Performing Organization Address [facility] Co de Phone Number [facility] [address] [place] [phone] * Lipase (08/25/2024 11:30 AM EST) Lipase 19 8 - 78 U/L [facility] Blood Venous blood specimen / Unknown 08/25/2024 11:30 AM EST 08/25/2024 1:03 PM EST Sugar Zuniga DO LAB BLOOD ORDERABLES Final R esult Performing Organization Address [facility]/ZIP Co de Phone Number [facility] [address] [place] [phone] * Amylase (08/25/2024 11:30 AM EST) Amylase 59 28 - 100 U/L [facility] Blood Venous blood specimen / Unknown 08/25/2024 11:30 AM EST 08/25/2024 1:03 PM EST Sugar Zuniga DO LAB BLOOD ORDERABLES Final R esult Performing Organization Address City/[facility]/ZIP Co de Phone Number [facility] [address] [place] [phone] * Hepatic Function Panel (08/25/2024 11:30 AM EST) Bilirubin, Direct 0.3 0.0 - 0.5 mg/dL [facility] Blood Venous blood specimen / Unknown 08/25/2024 11:30 AM EST 08/25/2024 1:03 PM EST Sugar Zuniga DO LAB BLOOD ORDERABLES Final R esult Performing Organization Address City/[facility]/ZIP Co de Phone Number [facility] [address] [place] [phone] * Lipid Panel, Standard (08/25/2024 11:30 AM EST) Triglycerides 53 <150 mg/dL [facility] Comment:Desirable Triglyceri de: less than 150 mg/dLBorderline High Triglyceride 150-199 mg/dLHigh Triglyceride: 200-499 mg/dLVery High Triglyceride: greater than or equal to 5OO mg/dL Cholesterol 148 <200 mg/dL [facility] Comment:Desirable Cholestero l: less than 200 mg/dLBorderline High Cholesterol: 200-239 mg/dLHigh Cholesterol: greater than 239 mg/dL LDL Cholesterol Calculated 86 <100 mg/dL [facility] Comment:Desirable LDL: less than 100 mg/dLNear Optimal/Above Optimal LDL: 110- 129 mg/dLBorderline High LDL: 130-159 mg/dLHigh LDL: 160-189 mg/dLVery High LDL: greater than or equal to 190 mg/dL HDL Cholesterol 52 >40 mg/dL [facility] Comment:Desirable HDL: great er than 40 mg/dL Note: This HDL assay may give artificially low results in patients with liver disease. 08/25/2024 11:3 0 AM EST 08/25/2024 1:03 PM EST us Ursula Ferrari AUTOMOTIVE PROFESSIONAL LAB BLOOD ORDERABLES Final Resu lt [facility] [address] [place] [address] [phone] * Influenza B (ID NOW Rapid Molecular) (08/25/2024 10:54 AM EST) Pathologist [facility] Influenza B Negative Negative, Indeterminate [facility] Swab 08/25/2024 10:5 4 AM EST Sugar Zuniga DO POINT OF CARE TEST ENTER/MIKAYLA T ORDERABLES Final Result [facility] [address] [place] [phone] * Influenza A (ID NOW Rapid Molecular) (08/25/2024 10:54 AM EST) Pathologist [facility] Influenza A Negative Negative, Indeterminate [facility] Swab 08/25/2024 10:5 4 AM EST us Sugar Zuniga DO POINT OF CARE TEST ENTER/MIKAYLA T ORDERABLES Final Result Performing Organization Address City/[facility]/ZIP Co de Phone Number [facility] [address] [place] [phone] * POCT Rapid COVID Ag (08/25/2024 10:54 AM EST) Pathologist [facility] Rapid COVID Ag Negative [facility] Swab 08/25/2024 10:5 4 AM EST Sugar Zuniga DO POINT OF CARE TEST ENTER/MIKAYLA T ORDERABLES Final Result Performing Organization Address [facility]/ZIP Co de Phone Number [facility] [address] [place] [phone] * Helicobacter pylori, Urea Breath Test (08/25/2024 10:51 AM EST) [facility] H. pylori Breath Test Negative Negative [facility] Comment:Antimicrobials, prot on pump inhibitors and bismuthpreparations are known to suppress H. pylori. Ingestingthese medications within two weeks prior to performing thebreath test may produce negative test results. A positiveresult is still clinically valid. Breath Oral cavity structure / Unknown 08/25/2024 10:51 AM EST 08/25/2024 1:13 PM EST us Sugar Zuniga DO LAB BLOOD ORDERABLES Final R esult [facility] [address] [place] [phone] * Pap Smear (07/01/2024 12:00 AM EST) Swab Cervix uteri structure / Unknown 07/01/2024 07/04/2024 10:00 AM EST Narrative [facility] - 07/08/2024 12:55 PM EST ----- ------- Name: Magda Boyle ? Age/Sex: 38/F ? : 1985 Unit#: [id number] ?? Attend Dr: ?Re07/01/24 ?Status: PRE REF ? Location: HO.LNP ?Disch: ? ----- ------- SPEC : [id number] ?RECD: 07/04/24-1000 ? STATUS: ??SOUT ? REQ NUM: [id number] ? JAI: 07/01/24-0000 ? SUBM DR: Shruti Frost PARTNERSHIP MARKETING MANAGER ? ENTERED: ??07/04/24-1010 ?SP TYPE: Pap Smr ?OTHR : ? ORDERED: ??Pap Smear ? Interpretation ?? Satisfactory for evaluation. ?? Negative for intraepithelial lesion or malignancy. ? HPV High Risk: ??Negative ? HPV Genotyping 16: ??Negative ?? HPV Genotyping 18: ??Negative ?Clinical Information LMP: Unknown date Previous PAP test: Unknown date/findings ? Material Received ?? ThinPrep-Cervical ----- ------- Signed (signature on file) CAMILA Ramirez ([facility]) 07/08/24 1255 ? ----- ------- ? END OF REPORT ? us Shruti Frost NP LAB CYTOLOGY ORDERABLES Final Re sult Performing Organization Address [facility] de Phone Number [facility] [address] [place] [phone] * Hepatitis C Antibody with Reflex to HCV, RNA, Quantitative, Real-Time PCR (06/14/2024 2:15 PM EST) Pathologist [facility] Hepatitis C Antibody Nonreactive Nonreactive [facility] Comment:Antibodies to HCV no t detected; does not exclude early acuteHCV infection. Blood Venous blood specimen / Unknown 06/14/2024 2:15 PM EST 06/14/2024 4:07 PM EST us Shruti Frost NP LAB BLOOD ORDERABLES Final Resul t Performing Organization Address [facility] Co de Phone Number [facility] [address] [place] [phone] from Last 3 Months or Most Recently Relevant to Health Maintenance Insurance HSN PARTIAL [facility] C3 DENTAL-[facility] MEDICAID STAND ADULT Care Teams Saturation Equipment Operator Relationship Specialty Start Date End Date Shruti Frost NP [address] [place] [phone] PCP - General Family Medicine 04/19/24
--- OUTSIDE RECORDS SUMMARY | 2024-11-21 18:30 | XMS_ITS | Encounter Summary ---
Author Organization [facility] Address [address] [place] [address] [address] [place] [address] Care Team Providers Care Legal Technician Name Role Phone Shruti Frost NP Primary Care Provider [phone] Reason for Visit * Reason Onset Date Comments New patient 04/02/2023 Encounter Details Date Type Department Care Team (Late st Contact Info) Description 04/02/[address] 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 EFFECTIVE SINCE 04/02/2023 documented in this encounter Plan of Treatment Upcoming Encounters Date Type Department Care Team (Late st Contact Info) Description 11/24/2024 2:00 PM EDT Office Visit [facility] [address] [place] [address] Ирина-Elissa Solis, DDS [address] [place] [address] 01/24/2025 2:00 PM EDT Office Visit [facility] [address] [place] [address] Jigna Younger documented as of this encounter Visit Diagnoses Not on filedocumented in this encounter Care Teams Legal Technician Relationship Specialty Start Date End Date Shruti Frost NP [address] [place] [address] PCP - General Family Medicine 04/19/24 documented as of this encounter
--- OUTSIDE RECORDS SUMMARY | 2024-11-21 18:30 | XMS_ITS | Encounter Summary ---
Author Organization [employer] Address [address] [facility] 7t [place] [address] Care Team Providers Care Heating Repair Technician Name Role Phone Shruti Frost NP Primary Care Provider [phone] Reason for Visit * Reason Comments Med Refill Encounter Details Date Type Department Care Team ([facility] st Contact Info) Description 09/05/[address] [facility] [address] [place], [place] [phone] Shruti Frost NP [address] [place], [place] [phone] Gastroesophageal reflux disease with esophagitis, unspecified whether [...] [facility] [address] [place] [address] Elissa Livingston DDS [address] [place] [address] 01/24/2025 2:00 PM EDT Office Visit [facility] [address] [place] [address] Jigna Younger documented as of this encounter Visit Diagnoses Diagnosis Gastroesophageal reflux disease with esophagitis, unspecified whether hemorrhage documented in this encounter Additional Health Concerns Assessment Noted Time PHQ-9 Depression Total Score: 3 12/14/19 24 3:17 PM EDT documented as of this encounter Care Teams Heating Repair Technician Relationship Specialty Start Date End Date Shruti Frost NP [address] [place] [address] PCP - General Family Medicine 04/19/24 documented as of this encounter
--- OUTSIDE RECORDS SUMMARY | 2024-11-21 18:30 | XMS_ITS | Clinical Summary ---
Author Organization [facility] Address [address] [place] [address] Care Team Providers Care Lead Shop Operator Name Role Phone Ursula Ferrari NP Primary Care Provider [phone] Allergies No known active allergies Medications [...] this topic Insurance HSNO/FREE CARE Care Teams Lead Shop Operator Relationship Specialty Start Date End Date Ursula Ferrari NP [address] [place] [address] [phone] PCP - General Family Medicine 03/10/24
--- OUTSIDE RECORDS SUMMARY | 2024-11-21 18:30 | XMS_ITS | Encounter Summary ---
Author Organization [email or web address] [facility] Address [address] [place] [address] [address] [place] [address] Care Team Providers Care Port Cdl A Driver Name Role Phone Shruti Frost NP Primary Care Provider [phone] Reason for Visit * Reason Comments Med Refill Encounter Details Date Type Department Care Team (Late st Contact Info) Description 05/17/2023 Refill [facility] [address] [place] [address] Dayan Hernandez FNP [address] [place] [address] Epigastric pain Social History Tobacco Use Types [...] Description 11/24/2024 2:00 PM EDT Office Visit [facility]ULT [facility] [address] [place] [address] Elissa Livingston DDS [address] [place] [address] 01/24/2025 2:00 PM EDT Office Visit [facility] [address] [place] [address] Jigna Younger documented as of this encounter Visit Diagnoses Diagnosis Epigastric pain Abdominal pain, epigastric documented in this encounter Care Teams Port Cdl A Driver Relationship Specialty Start Date End Date Shruti Frost NP [address] [place] [phone] PCP - General Family Medicine 04/19/24 documented as of this encounter
[2024-11-22 22:33] LABS: Transglutaminase IgA <1.0 U/mL
== END 2024-11-21 15:51 | disposition home or self-care (01) ==
LOC: HO.LAB 15:50
PROVIDERS: Nurse Practitioner Family; PCP Family Medicine; Visit Provider Nurse Practitioner Family
DX: R10.31 Right lower quadrant pain (principal); R10.13 Epigastric pain; R10.9 Unspecified abdominal pain; K59.00 Constipation, unspecified; K21.9 Gastro-esophageal reflux disease without esophagitis; R14.0 Abdominal distension (gaseous)
CPT/HCPCS: 36415; 80053; 84443; 85025; 86364; 99212

== ENCOUNTER 2024-11-21 15:50 | Outpatient (AMB) | payer MEDICAID, SELFPAY ==
--- NOTE | 2024-11-21 15:51 | MHC.OFFVIS ---
Vital Signs 11/21/24 16:08 Height 5 ft 6 in Weight 151 lb 10.848 oz BMI 24.5 BP 110/62 Blood Pressure Location Rt brachial Position Sitting Pulse 82 Pulse Source Pulse Oximeter Pulse Oximetry (%) 100 Oxygen Delivery Method Room Air Intake Visit Reasons: consult constipation, epigastric, reflux Intake Note: NEW PATIENT for initial eval of GERD, epigastric pain, and fecal abn. Prior hx of colo/egd? N Chief Complaint; C/O constipation w/o signs of hemorrhoids per pt, GERD w/ epigastric pain despite active tx. Pt experiences breakthrough fairly frequently. Pt reports onset of sx ~ 1 year ago. Multiple therapies attempted per PCP. Pt finds that they are very dependent on the medications to maintain any sense of normalcy. Termite Exterminator Required: Yes Termite Exterminator Services: Termite Exterminator Offered & Declined Accompanied by: Spouse Allergies No Known Allergies Allergy (Verified 11/22/24 10:59) HPI HPI consult constipation, epigastric, reflux: Details: 39-year-old female with past medical history of migraine headaches and constipation is here today for initial consultation. Patient was sent to us by PCP for better management of her bowel as well as for acid reflux that is ongoing. Patient currently is not taking any PPI. Tried multiple [id number] medications to help her with bowel movements, however she feels like she has to depend on then because without taking anything she has no bowel movements for few days. Patient denies any melena, hematochezia, unintentional weight loss or ribbon like stools. Patient denies dyspepsia, dysphagia or odynophagia. Acid reflux mainly after meals. Patient reports that she is trying to eat healthy. Does not eat late at night [facility] Medical History GERD (gastroesophageal reflux disease) Constipation Migraine Social History (System 11/22/24 @ 10:59 by Marilyn Wagner) Alcohol intake: never Patient Tobacco Use Status: Never used Tobacco Review of Systems Const Denies weight gain and Denies weight loss ENT Reports no additional complaints, Denies dysphagia and Denies odynophagia Card Reports no additional complaints Resp Reports no additional complaints GI Reports abdominal pain, Denies belching, Denies melena, Reports bloating, Denies change in bowel habits, Reports constipation, Denies dysphagia, Denies excessive flatus, Denies dyspepsia, Reports heartburn, Denies diarrhea, Denies loose stools, Denies nausea, Denies odynophagia and Denies vomiting Reports no additional complaints Musc Reports no additional complaints Neuro Reports no additional complaints Psych Reports no additional complaints Endo Reports no additional complaints Physical Exam Vital Signs: Last Vital Signs Pulse 82 11/21/24 16:08 BP 110/62 11/21/24 16:08 Pulse Ox 100 11/21/24 16:08 Oxygen Delivery Method Room Air 11/21/24 16:08 BMI result Body Mass Index 24.5 Const General: healthy appearing, no acute distress and well developed Nutritional Appearance: well nourished Orientation/consciousness: patient oriented x3 HEENT Head: Yes normal to inspection, Yes normocephalic and Yes atraumatic Face and sinus: Yes normal facial exam Mouth: Normal oral and palatal mucosa present Throat: Yes posterior oropharynx normal, Yes tonsils normal and Yes uvula midline Eyes General: appearance normal, both eyes and all related structures Neck Neck: Yes normal visual inspection, Yes full ROM and Yes trachea midline Thyroid: Thyroid normal Resp Effort & Inspection: normal respiratory effort, able to speak in complete sentences, no tracheal deviation and symmetric chest movement Auscultation: clear to auscultation bilaterally Cardio Jugular venous distension: no JVD Rate: regular rate Heart sounds: S1 normal heart sound present, S2 normal heart sound present, no gallops and no murmurs GI Inspection: Yes normal to inspection and No distended Palpation (GI): Soft to palpation, not firm, nontender and No hepatosplenomegaly present Auscultation: normal bowel sounds General: Yes no CVA tenderness Back/Spine/Pelvis Back: no CVA tenderness Skin General skin exam: elasticity normal, turgor normal and dry skin Neuro General: patient oriented x3 Psych Appearance: grossly normal Mental Status: mental status grossly normal Speech and movement: Normal speech and movement present Affect: normal affect Attitude: cooperative Thought process: Normal thought process present Thought content: Normal thought content present Insight: Good insight present (Psych) Judgement: Good judgement present (Psych) Assessment & Plan Assessment & Plan (1) Postprandial epigastric pain: Code(s): R10.13 - Epigastric pain (2) GERD (gastroesophageal reflux disease): Code(s): K21.9 - Gastro-esophageal reflux disease without esophagitis Qualifiers: Esophagitis presence: esophagitis presence not specified Qualified Code(s): K21.9 - Gastro-esophageal reflux disease without esophagitis (3) Constipation: Code(s): K59.00 - Constipation, unspecified Qualifiers: Constipation type: slow transit constipation Qualified Code(s): K59.01 - Slow transit constipation (4) Postprandial abdominal bloating: Code(s): R14.0 - Abdominal distension (gaseous) Plan Patient will start taking pantoprazole every morning half an hour before breakfast. Avoid dietary triggers Toyin is likely. Staying upright for minimal 3 hours after meals discussed with patient. Patient will be sent for upper GI to check for reflux. Will be sent to rule out celiac. Patient reports constipation. Will start patient on Dulcolax daily. Increase fluid intake and activity to promote better bowel motility. Will check thyroid study. She will return in 3-4 months, sooner on as needed basis. She is agreeable to this plan and verbalizes understanding of instructions. She was given the opportunity to ask questions and all questions answered. Thank you for allowing me to participate in her care Orders: Orders Transglutaminase IgA 11/21/24 R10.9 - Unspecified abdominal pain TSH reflex Free T4 11/21/24 K59.00 - Constipation, unspecified [place] upper GI w Ba Swallow 11/21/24 K21.9 - Gastro-esophageal reflux disease without esophagitis Medications: New bisacodyl (Dulcolax (bisacodyl)) 10 mg (2 x 5 mg) PO BEDTIME 180 tabs 4RF pantoprazole take one tablet half an hour before breakfast 40 mg PO DAILY 30 tabs 3RF K21.9 - Gastro-esophageal reflux disease without esophagitis Coding Level of Care Code New Pt Level 4 (33451) Diagnoses Postprandial epigastric pain R10.13 Gastroesophageal reflux disease, unspecified whether esophagitis present K21.9 Esophagitis presence: esophagitis presence not specified Slow transit constipation K59.01 Constipation type: slow transit constipation Postprandial abdominal bloating R14.0 Time Spent (min) 45 Comment 35 minutes spent with patient and additional 10 minutes spent reviewing her records
[2024-11-21 16:08] VITALS: BP 110/62; PULSE 82; O2SAT 100; BMI 24.5
--- OUTSIDE RECORDS SUMMARY | 2024-11-21 18:09 | XMS_ITS | Clinical Summary ---
Author Organization [facility] Address [address] [place] [address] Care Team Providers Care Custom Shoemaker Name Role Phone Ursula Ferrari NP Primary Care Provider [phone] Allergies No known active allergies Medications Vienva 0.1-20 mg-mcg per tablet Take 1 tablet by mouth once a day. 01/17/2024 Active multivitamin (THERAGRAN) tablet Take 1 tablet by mouth once a day. Active Active Problems Problem Noted Date Diagnosed Date Varicose veins of lower extremity with pain, raul ateral 03/21/2024 Social History Tobacco Use Types Packs/Day Years Used Date Smoking Tobacco: Never Smokeless Tobacco: Never Tobacco Cessation:Counseling Given: Not Answered Comments Unknown Sex and Gender Information Value Date Recorded Sex Assigned at Female 12/22/2023 7:22 AM EDT Legal Sex Female 11:11 AM EDT Gender Identity Not on file Sexual Orientation Not on file Last Filed Vital Signs Vital Sign Reading Time Taken Comments Blood Pressure 93/60 03/21/2024 10:59 AM EDT Pulse 78 03/21/2024 10:53 AM EDT Temperature - - Respiratory Rate 16 03/21/2024 10:53 AM EDT Oxygen Saturation 100% 03/21/2024 10:53 AM EDT Inhaled Oxygen Concentration - - Weight 64.4 kg (142 lb) 03/21/2024 10:53 AM EDT Height 165.1 cm (5' 5 ) 03/21/2024 10:53 AM EDT Body Mass Index 23.63 03/21/2024 10:53 AM EDT Plan of Treatment Health Maintenance Due Date Last Done Comments Cervical Cancer Screening 1987 HPV and Pap Smear 1987 Hepatitis C Screening 1987 Pap Smear 1987 Varicella Vaccines (1 of 2 - 13+ 2-dose series) 2000 Hepatitis B Vaccines (2 of 3 - 19+ 3-dose series) 01/11/2024 12/14/2023 COVID-19 Vaccine (1 - 2023-2 5 season) 2024 Alcohol/Substance Use Screening 08/10/2024 Depression Screening and Follow-Up 08/10/2024 Social Drivers of Health [place] ual Screening 08/10/2024 Influenza Vaccine (Season Ended) 2025 DTaP,Tdap,and Td Vaccines (2 - Td or Tdap) 12/13/2033 12/14/2023 RSV Vaccine (60+ years old a nd patients) (1 - 1-dose 75+ series) 2062 HIV Screening Completed 12/14/2023 Pneumococcal Vaccine: Pediat jazmine (0-5 Years) and At-Risk Patients (6-50 Years) Aged Out No longer eligible b ased on patient's age to complete this topic Insurance HSNO/FREE CARE Care Teams Custom Shoemaker Relationship Specialty Start Date End Date Ursula Ferrari NP [address] [place] [address] [id number] PCP - General Family Medicine 03/10/24
--- OUTSIDE RECORDS SUMMARY | 2024-11-21 18:09 | XMS_ITS | Clinical Summary ---
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 (signature on file) CAMILA Ramirez (ASCP) 07/08/24 1215 ? ----- ------- ? END OF REPORT ? us Shruti Frost SEPARATOR OPERATOR LAB CYTOLOGY ORDERABLES Final Re sult Performing Organization Address [facility]/ZIP Co de Phone Number [facility] [address] [place] [phone] * Hepatitis C Antibody with Reflex to HCV, RNA, Quantitative, Real-Time PCR (06/14/2024 2:15 PM EST) Hepatitis C Antibody Nonreactive Nonreactive [facility] Comment:Antibodies to HCV no t detected; does not exclude early acuteHCV infection. Blood Venous blood specimen / Unknown 06/14/2024 2:15 PM EST 06/14/2024 4:07 PM EST us Shruti Frost SEPARATOR OPERATOR LAB BLOOD ORDERABLES Final Resul t Performing Organization Address [facility] Co de Phone Number [facility] [address] [place] [phone] from Last 3 Months or Most Recently Relevant to Health Maintenance Insurance [facility] C[facility] MEDICAID STAND ADULT Care Teams Diversified Crops Farmworker Relationship Specialty Start Date End Date Shruti Frost NP [address] [place] [phone] PCP - General Family Medicine 04/19/24
--- OUTSIDE RECORDS SUMMARY | 2024-11-21 18:09 | XMS_ITS | Encounter Summary ---
Author Organization [facility] Address [address] [place] [address] [address] [place] [address] Care Team Providers Care Personal Care Home Administrator Name Role Phone Shruti Frost NP Primary Care Provider [phone] Reason for Visit * Reason Onset Date Comments New patient 04/02/2023 Encounter Details Date Type Department Care Team (Late st Contact Info) Description 04/02/[address] 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 EFFECTIVE SINCE 04/02/2023 documented in this encounter Plan of Treatment Upcoming Encounters Date Type Department Care Team (Late st Contact Info) Description 11/24/2024 2:00 PM EDT Office Visit [facility] ADULT DENTAL [address] [place] [address] Ирина-Elissa Solis, DDS [address] [place] [address] 01/24/2025 2:00 PM EDT Office Visit [facility] ADULT DENTAL [address] [place] [address] iJgna Younger documented as of this encounter Visit Diagnoses Not on filedocumented in this encounter Care Teams Personal Care Home Administrator Relationship Specialty Start Date End Date Shruti Frost NP [address] [place] [address] PCP - General Family Medicine 04/19/24 documented as of this encounter
--- OUTSIDE RECORDS SUMMARY | 2024-11-21 18:09 | XMS_ITS | Referral Summary ---
Author Organization [facility] Address [address] [place] [address] Care Team Providers Care Inspector Final Assembly Electrical Name Role Phone Ursula Ferrari NP Primary Care Provider [phone] Allergies No known active allergies Medications [...] 03/21/2024 10:53 AM EDT Plan of Treatment Not on file Insurance HSNO/FREE CARE Care Teams Inspector Final Assembly Electrical Relationship Specialty Start Date End Date Ursula Ferrari NP [address] [place] [address] PCP - General Family Medicine 03/10/24
--- OUTSIDE RECORDS SUMMARY | 2024-11-21 18:09 | XMS_ITS | Encounter Summary ---
Author Organization [employer] Address [address] [facility] [address] [address] [place] [address] Care Team Providers Care Consulting Hr Professional Name Role Phone Shruti Frost NP Primary Care Provider [phone] Reason for Visit * Reason Comments Med Refill Encounter Details Date Type Department Care Team ([facility] st Contact Info) Description 09/05/2024 Refill [facility]INE [address] [place], [place] [phone] Shruti Frost NP [address] [place], [place] [phone] Gastroesophageal reflux disease with esophagitis, unspecified whether hemorrhage Social History Tobacco Use Types Packs/Day Years Used Date Smoking Tobacco: Never Passive Smoke Exposure: Never Smokeless Tobacco: Never Alcohol Use Standard Drinks/Week Comments Not Currently 0 (1 standard drink = 0.6 oz pur e alcohol) Depression Answer Date Recorded Patient Health Questionnaire-9 Score 3 12/14/2023 Patient Health Questionnaire-9 Score 3 12/14/2023 Last PHQ-9: Questionnaire Data Not on file 0 12/14/2023 Housing Stability Answer Date Recorded What is [...] Answer Date Recorded Patient Health Questionnaire-2 Score 0 12/14/2023 Comments No Sex and Gender Information Value Date Recorded Sex Assigned at Female 02/17/2023 4:06 PM EDT Legal Sex Female 4:01 PM EDT Gender Identity Female 02/17/2023 4:06 PM EDT Sexual Orientation Straight 06/14/2024 2: 58 PM EST documented as of this encounter Plan of Treatment Upcoming Encounters Date Type Department Care Team (Late st Contact Info) Description 11/24/2024 2:00 PM EDT Office Visit [facility] ADULT DENTAL [address] [place] [address] Elissa Livingston DDS [address] [place] [address] 01/24/2025 2:00 PM EDT Office Visit [facility] ADULT DENTAL [address] [place] [address] Jigna Younger documented as of this encounter Visit Diagnoses Diagnosis Gastroesophageal reflux disease with esophagitis, unspecified whether hemorrhage documented in this encounter Additional Health Concerns Assessment Noted Time PHQ-9 Depression Total Score: 3 12/14/19 24 3:17 PM EDT documented as of this encounter Care Teams Consulting Hr Professional Relationship Specialty Start Date End Date Shruti Frost NP [address] [place] [address] PCP - General Family Medicine 04/19/24 documented as of this encounter
--- OUTSIDE RECORDS SUMMARY | 2024-11-21 18:09 | XMS_ITS | Encounter Summary ---
Author Organization [employer] Address [address] [place] [address] [address] [place] [address] Care Team Providers Care Court Liaison Name Role Phone Shruti Frost NP Primary Care Provider [phone] Encounter Details Date Type Department Care Team (Late st Contact Info) Description 02/23/2023 Orders Only [facility] [address] [place] [address] Dayan Hernandez FNP [address] [place], [place] [phone] Epigastric pain Social History Tobacco Use Types Packs/Day Years Used Date Smoking Tobacco: Never Passive Smoke Exposure: Never Smokeless Tobacco: Never Comments Unknown Sex and Gender Information Value Date Recorded Sex Assigned at Female 02/17/2023 4:06 PM EDT Legal Sex Female 4:01 PM EDT Gender Identity Female 02/17/2023 4:06 PM EDT Sexual Orientation Straight 06/14/2024 2: 58 PM EST COVID-19 Exposure Response Date Recorded In the last 10 days, have yo u been in contact with someone who was confirmed or suspected to have Coronavirus/COVID-19? No / Unsure 02/17/2023 4:08 PM EDT documented as of this encounter Plan of Treatment Upcoming Encounters Date Type Department Care Team (Late st Contact Info) Description 11/24/2024 2:00 PM EDT Office Visit [facility] ADULT DENTAL [address] [place] [address] Elissa Livingston DDS [address] [place] [address] 01/24/2025 2:00 PM EDT Office Visit [facility] ADULT DENTAL [address] [place] [address] Jigna Younger documented as of this encounter Visit Diagnoses Diagnosis Epigastric pain Abdominal pain, epigastric documented in this encounter Care Teams Court Liaison Relationship Specialty Start Date End Date Shruti Frost NP [address] [place] [address] PCP - General Family Medicine 04/19/24 documented as of this encounter
--- OUTSIDE RECORDS SUMMARY | 2024-11-21 18:09 | XMS_ITS | Encounter Summary ---
Author Organization [employer] [facility] Address [address] [place] [address] [address] [place] [address] Care Team Providers Care Manager Review Name Role Phone Shruti Frost NP Primary Care Provider [phone] Reason for Visit * Reason Comments Med Refill Encounter Details Date Type Department Care Team (Late st Contact Info) Description 05/17/2023 Refill [facility] [address] [place] [address] Dayan Hernandez FNP [address] [place] [address] Epigastric pain Social History Tobacco Use Types [...] Description 11/24/2024 2:00 PM EDT Office Visit [facility] ADULT DENTAL [address] [place] [address] Elissa Livingston DDS [address] [place] [address] 01/24/2025 2:00 PM EDT Office Visit [facility] ADULT DENTAL [address] [place] [address] Jigna Younger documented as of this encounter Visit Diagnoses Diagnosis Epigastric pain Abdominal pain, epigastric documented in this encounter Care Teams Manager Review Relationship Specialty Start Date End Date Shruti Frost NP [address] [place] [phone] PCP - General Family Medicine 04/19/24 documented as of this encounter
== END 2024-11-21 16:21 | disposition home or self-care (01) ==
LOC: HO.HGI 15:50
PROVIDERS: PCP Family Medicine; Visit Provider Nurse Practitioner Family
DX: K59.01 Slow transit constipation (principal); K21.9 Gastro-esophageal reflux disease without esophagitis; R14.0 Abdominal distension (gaseous)
CPT/HCPCS: 99204

== ENCOUNTER 2025-04-20 14:29 | Outpatient (AMB) | payer MEDICAID, SELFPAY ==
--- NOTE | 2025-04-20 14:33 | A.OFFVIS_ITS ---
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 Pt states they are causing pain, itching and inflamation. 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 Complaints include pain over varicosities, swelling of lower extremities, cramping, fatigue, and heaviness of the lower extremities. It has been affecting there daily activities including walking. It is noted more so in r ight leg. Patient denies any previous venous surgery or injections. Patient denies any history of DVT/ PE. Patient denies any history of phlebitis. Trial of compression includes - [id number] They now present for vascular evaluation regarding their varicose veins. [facility] Medical History GERD (gastroesophageal reflux disease) Constipation Migraine Social History Alcohol intake: never Patient Tobacco Use Status: Never used Tobacco Review of Systems Const Reports as per HPI ENT Reports no additional complaints Card Denies chest pain, Denies chest pain at rest and Denies chest pain with activity Resp Denies chest congestion and Denies cough GI Reports no additional complaints Musc Details: pain over varicosities, aching of lower extremities, swelling, cramping, heaviness and tiredness, itching Denies abnormal gait Skin/Breast Reports pruritus and Denies wounds Neuro Reports no additional complaints and Denies abnormal gait Psych Denies no additional complaints Physical Exam Vital Signs: BMI result Body Mass Index 24.4 Const General: cooperative, healthy appearing and comfortable Orientation/consciousness: oriented to person, oriented to place and oriented to time Neck Carotids: no bruits Chest Chest palpation & inspection: normal inspection of the chest and normal palpation of entire chest wall Resp Effort & Inspection: normal respiratory effort and able to speak in complete sentences Cardio Rate: regular rate Heart sounds: S1 normal heart sound present and S2 normal heart sound present Peripheral pulses: Peripheral pulses 2+ throughout GI Inspection: Yes normal to inspection Skin Other: +2 edema, large rope-like varicosities greater than 4 mm in particular right pretibial surface CEAP Classification C4 - skin color changes Ep - Etiology Primary As - superficial veins P - reflux General skin exam: dry skin Neuro General: oriented to person, oriented to place and oriented to time Extrem Right lower extremity: full ROM, normal capillary refill and edema Left lower extremity: full ROM, normal capillary refill and edema Psych Mental Status: mental status grossly normal Assessment & Plan Assessment & Plan (1) Varicose veins of right lower extremity with inflammation: Code(s): I83.11 - Varicose veins of right lower extremity with inflammation Category: Medical Plan: In short, the patient has evidence of venous insufficiency. I have discussed the pathophysiology with the patient. In addition I have provided informational material regarding venous disease to the patient. We have discussed conservative measures including compression, elevation, and exercise. I have also provided a handout regarding appropriate use of compression stockings and where to purchase good compression stockings as well. I have taken the liberty of ordering venous insufficiency testing with the patient. They will follow up with me after testing. The patient had an opportunity to ask questions regarding the treatment plan. All questions were answered. Imaging studies, laboratory studies and physical exam results were discussed and reviewed in detail. No major barriers to understanding were identified. The patient expressed understanding and agreement with the above treatment plan. The patient is aware they should contact our office by phone for worsening of the current condition or the appearance of new symptoms. Thank you for allowing me to participate in the vascular care of this patient. If you have any questions or concerns regarding the treatment for the above condition please do not hesitate to contact me. The office telephone contact is [phone]. This note is constructed using voice recognition software. While every effort has been made to ensure accuracy, production welder errors may have been included. Thank you for allowing me to participate in the care of your patient. Yours sincerely, Spencer Bianchi MD, FACS, R.P.V.I. Orders: Orders US venous duplex LE BI Today I83.11 - Varicose veins of right lower extremity with inflammation Coding Level of Care Code Est Pt Level 4 (12726) Diagnoses Varicose veins of right lower extremity with inflammation I83.11
[2025-04-20 14:34] VITALS: BMI 24.4
--- OUTSIDE RECORDS SUMMARY | 2025-04-20 18:11 | XMS_ITS | Encounter Summary ---
Author Organization [employer] [facility] Address [address] [place] [address] [address] [address] Care Team Providers Care Agricultural Inspector Name Role Phone Shruti Frost NP Primary Care Provider [phone] Reason for Visit * Reason Comments Med Refill Encounter Details Date Type Department Care Team ([facility] Contact Info) Description 05/17/2023 Refill [facility] MED[facility]INE [address] [place] [address] Dayan Hernandez FNP [address] [place] [address] Epigastric pain Social History Tobacco Use Types [...] Care Team (Late st Contact Info) Description 04/24/2025 2:00 PM EDT Office Visit [facility] ADULT DENTAL [address] [place] [address] Elissa Livingston DDS [address] [place] [address] documented as of this encounter Visit Diagnoses Diagnosis Epigastric pain Abdominal pain, epigastric documented in this encounter Care Teams Agricultural Inspector Relationship Specialty Start Date End Date Shruti Frost NP [address] [place] [address] PCP - General Family Medicine 04/19/24 documented as of this encounter
--- OUTSIDE RECORDS SUMMARY | 2025-04-20 18:11 | XMS_ITS | Encounter Summary ---
Author Organization [employer] Address [address] [place] [address] Care Team Providers Care Chlorine Cell Tender Name Role Phone Shruti Frost NP Primary Care Provider [phone] Reason for Visit * Reason Comments Med Refill Encounter Details Date Type Department Care Team ([facility] Contact Info) Description 04/20/2025 Refill [facility] [address] [place], [place] [phone] Shruti Frost NP [address] [place] [address] Chronic constipation Social History Tobacco Use Types Packs/Day Years Used Date Smoking Tobacco: Never Passive Smoke Exposure: Never Smokeless Tobacco: Never Alcohol Use Standard Drinks/Week Comments Not Currently 0 (1 standard drink = 0.6 oz pur e alcohol) Depression Answer Date Recorded Patient Health Questionnaire-9 Score 0 03/17/2025 Patient Health Questionnaire-9 Score 0 03/17/2025 Last PHQ-9: Questionnaire Data Not on file 0 03/17/2025 Housing Stability Answer Date Recorded What is your housing situation today? I have [place] 03/17/[address] you li ve. Do you have problems with any of the following? None of the above 03/17/2025 Food Insecurity Answer Date Recorded Within the past 12 months, y ou worried that your food would run out before you got money to buy more: Never True 03/17/2025 Within the past 12 months,th e food you bought just didn't last and you didn't have enough money to get more: Never True 03/2025 Transportation Answer Date Recorded In the past 12 months, has l ack of transportation kept you from medical appts, meetings, work or from getting things needed for daily living? No 03/17/2025 Utilities Answer Date Recorded In the past 12 months, has t he electric, gas, oil or water company threatened to shut off services in your home? No 03/17/2025 Depression Answer Date Recorded Patient Health Questionnaire-2 Score 0 03/17/2025 Internet Access Answer Date Recorded Internet Access Q1 Yes 03/17/2025 Internet Access Q2 Not on file 03/17/2025 Comments No Sex and Gender Information Value [...] Description 04/24/2025 2:00 PM EDT Office Visit [facility] ADULT DENTAL [address] [place] [address] Elissa Livingston DDS [address] [place] [address] documented as of this encounter Visit Diagnoses Diagnosis Chronic constipation Unspecified constipation documented in this encounter Additional Health Concerns Assessment Noted Time PHQ-9 Depression Total Score: 0 03/17/20 25 2:33 PM EDT documented as of this encounter Care Teams Chlorine Cell Tender Relationship Specialty Start Date End Date Shruti Frost NP [address] [place] [address] PCP - General Family Medicine 04/19/24 documented as of this encounter
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
--- OUTSIDE RECORDS SUMMARY | 2025-04-20 18:11 | XMS_ITS | Encounter Summary ---
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 EFFECTIVE SINCE 04/02/2023 documented in this encounter Plan of Treatment Upcoming Encounters Date Type Department Care Team (Late st Contact Info) Description 04/24/2025 2:00 PM EDT Office Visit [facility] ADULT DENTAL [address] [place], [place] [phone] Elissa Livingston DDS [address] [place], [place] [phone] documented as of this encounter Visit Diagnoses Not on filedocumented in this encounter Care Teams Account Administrator Relationship Specialty Start Date End Date Shruti Frost NP [address] [place], [place] [phone] PCP - General Family Medicine 04/19/24 documented as of this encounter
--- OUTSIDE RECORDS SUMMARY | 2025-04-20 18:11 | XMS_ITS | Encounter Summary ---
Author Organization [employer] Address [address] [place] [address] [address] [place] [address] Care Team Providers Care Utility Bill Collector Name Role Phone Shruti Frost NP Primary Care Provider [phone] Reason for Visit * Reason Comments Med Refill Encounter Details Date Type Department Care Team ([facility] Contact Info) Description 09/05/2024 Refill [facility] [address] [place], [place] [phone] Shruti Frost NP [address] [place], [place] [phone] Gastroesophageal reflux disease with esophagitis, unspecified whether [...] Description 04/24/2025 2:00 PM EDT Office Visit [facility] ADULT DENTAL [address] [place] [address] Elissa Livingston DDS [address] [place] [address] documented as of this encounter Visit Diagnoses Diagnosis Gastroesophageal reflux disease with esophagitis, unspecified whether hemorrhage documented in this encounter Additional Health Concerns Assessment Noted Time PHQ-9 Depression Total Score: 3 12/14/19 24 3:17 PM EDT documented as of this encounter Care Teams Utility Bill Collector Relationship Specialty Start Date End Date Shruti Frost NP [address] [place] [address] PCP - General Family Medicine 04/19/24 documented as of this encounter
--- OUTSIDE RECORDS SUMMARY | 2025-04-20 18:11 | XMS_ITS | Encounter Summary ---
Author Organization [employer] Address [address] [place] [address] [address] [place] [address] Care Team Providers Care Spike Machine Operator Name Role Phone Shruti Frost NP Primary Care Provider [phone] Encounter Details Date Type Department Care Team (Late Contact Info) Description 02/23/2023 Orders Only [facility] MEDICINE [address] [place] [address] Dayan Hernandez FNP [address] [place], [place] [phone] Epigastric pain Social History Tobacco Use Types [...] Description 04/24/2025 2:00 PM EDT Office Visit [facility] ADULT DENTAL [address] [place] [address] Elissa Livingston DDS [address] [place] [address] documented as of this encounter Visit Diagnoses Diagnosis Epigastric pain Abdominal pain, epigastric documented in this encounter Care Teams Spike Machine Operator Relationship Specialty Start Date End Date Shruti Frost NP [address] [place] [id number] PCP - General Family Medicine 04/19/24 documented as of this encounter
--- OUTSIDE RECORDS SUMMARY | 2025-04-20 18:11 | XMS_ITS | Clinical Summary ---
Author Organization [facility] Address [address] [place] [address] Care Team Providers Care Neon Sign Mechanic Name Role Phone Ursula Ferrari NP Primary Care Provider [phone] Allergies No known active allergies Medications [...] 3 - 19+ 3-dose series) 01/11/2024 12/14/2023 Alcohol/Substance Use Screening 08/10/2024 Depression Screening and Follow-Up 08/10/2024 Social Drivers of Health Elyse ual Screening 08/10/2024 COVID-19 Vaccine (1 - 2023-2 5 season) 2025 Influenza Vaccine (#1) 2025 DTaP,Tdap,and Td Vaccines (2 - Td or Tdap) 12/13/2033 12/14/2023 RSV Vaccine (60+ years old a nd patients) (1 - 1-dose 75+ series) 2062 HIV Screening Completed 12/14/2023 Pneumococcal Vaccine: Pediat jazmine (0-5 Years) and At-Risk Patients (6-50 Years) Aged Out No longer eligible b ased on patient's age to complete this topic Insurance HSNO/FREE CARE Care Teams Neon Sign Mechanic Relationship Specialty Start Date End Date Ursula Ferrari NP [address] [place] [address] [phone] PCP - General Family Medicine 03/10/24
--- OUTSIDE RECORDS SUMMARY | 2025-04-20 18:11 | XMS_ITS | Encounter Summary ---
Author Organization [employer] Address [address] [facility] [address] [place] [address] Care Team Providers Care Advisory Intern Name Role Phone Shruti Frost NP Primary Care Provider [phone] Encounter Details Date Type Department Care Team (Late st Contact Info) Description 12/06/2024 Orders Only [facility] CHC MED & PEDS [address] [place], [place] [phone] Sonja Skagsg Social History Tobacco Use Types Packs/Day Years [...] Description 04/24/2025 2:00 PM EDT Office Visit [facility] ADULT DENTAL [address] [place], [place] [phone] Elissa Livingston DDS [address] [place], [place] [phone] documented as of this encounter Procedures Procedure Name Priority Date/Time Associated Diagnosis Comments HPV MRNA E6/E7 REFLEX TO HPV 16, 18/45 Routine 07/01/2024 12:00 AM EST documented in this encounter Results * HPV mRNA E6/E7 w/Reflex to HPV Genotypes 16, 18/45 (07/01/2024 12:00 AM EST) us Historical Provider LAB CYTOLOGY ORDERABLES F inal Result [facility] [address] [place] [address] [phone] documented in this encounter Visit Diagnoses Not on filedocumented in this encounter Additional Health Concerns Assessment Noted Time PHQ-9 Depression Total Score: 9 10/04/19 25 3:02 PM EST documented as of this encounter Care Teams Advisory Intern Relationship Specialty Start Date End Date Shruti Frost NP [address] [place], [place] [phone] PCP - General Family Medicine 04/19/24 documented as of this encounter
== END 2025-04-20 14:54 | disposition home or self-care (01) ==
LOC: HO.HVS 14:30
PROVIDERS: PCP Family Medicine; Visit Provider Surgery Vascular Surgery
DX: I83.11 Varicose veins of right lower extremity with inflammation (principal)
CPT/HCPCS: 99214

== ENCOUNTER → 2025-04-20 14:29 | Outpatient (BNVA) | payer MEDICAID, SELFPAY | PROVIDERS: PCP Family Medicine; Visit Provider Surgery Vascular Surgery | DX: I83.11 Varicose veins of right lower extremity with inflammation (principal) | CPT/HCPCS: 99212 ==

== ENCOUNTER 2025-06-26 13:35 | Outpatient (REF) | payer MEDICAID, SELFPAY ==
--- NOTE | ~2025-06-26 | US_ITS ---
EXAMINATION: US LOWER EXTREMITY VENOUS (REFLUX EXAM), BILATERAL CLINICAL INFORMATION: Varicose veins of the right lower extremity with inflammation COMPARISON: None. TECHNIQUE: Color flow triplex imaging and compression Doppler was performed to evaluate both the deep and the superficial systems bilaterally. To evaluate the superficial system, the examination was performed in the upright position. Color-flow Doppler ultrasound and compression ultrasound were utilized. In addition, maneuvers were utilized to demonstrate reflux. FINDINGS: 1. DEEP VENOUS ULTRASOUND OF THE RIGHT LOWER EXTREMITY: Common Femoral Vein: Compressible, normal respiratory variation and augmented flow. Femoral Vein: Compressible, normal color flow and augmentation. Popliteal Vein: Compressible, normal augmentation. Deep Reflux: Femoral vein: Reflux: 2100 ms Popliteal vein: Reflux: 2650 ms 2. SUPERFICIAL ULTRASOUND WITH DOPPLER OF RIGHT LOWER EXTREMITY: GREAT SAPHENOUS VEIN: Saphenofemoral Junction: 0.5 cm; Reflux: 0 ms Proximal Thigh: 0.4 cm; Reflux: 0 ms Mid Thigh: 0.3 cm; Reflux: 0 ms Distal Thigh: 0.1 cm; Reflux: 0 ms At Knee: 0.2 cm; Reflux: 0 ms Below Knee/Proximal Calf: 0.2 cm; Reflux: 0 ms Mid Calf: 0.1 cm; Reflux: 0 ms Ankle/Distal Calf: 0.2 cm; Reflux: 2200 ms Lateral accessory GREAT SAPHENOUS VEIN: Saphenofemoral Junction: 0.2 cm; Reflux: 0 ms Mid Thigh: 0.2 cm; Reflux: 0 ms SMALL SAPHENOUS VEIN: Drainage: Thigh extension Saphenopopliteal Junction: 0.1 cm; Reflux: 0 ms Mid calf: 0.2 cm; Reflux: 0 ms Distal: 0.2 cm; Reflux: 1700 ms VEIN OF GIACOMINI: Size: 0.3 cm Reflux: 0 ms PERFORATORS: Location: Greater saphenous vein, mid calf, 26 cm from heel Size: 0.4 cm Reflux: 1650 ms Location: Greater saphenous vein, mid calf Size: 0.2 cm Reflux: 0 ms VARICOSITIES > 3mm: Location: Great saphenous vein, mid thigh Size: 0.6 cm Reflux: >2800 ms 3. DEEP VENOUS ULTRASOUND OF THE LEFT LOWER EXTREMITY: Common Femoral Vein: Compressible, normal respiratory variation and augmented flow. Femoral Vein: Compressible, normal color flow and augmentation. Popliteal Vein: Compressible, normal augmentation. Deep Reflux: Popliteal vein: Reflux: >2600 ms 4. SUPERFICIAL ULTRASOUND WITH DOPPLER OF LEFT LOWER EXTREMITY: GREAT SAPHENOUS VEIN: Saphenofemoral Junction: 0.8 cm; Reflux: 0 ms Proximal Thigh: 0.4 cm; Reflux: 0 ms Mid Thigh: 0.3 cm; Reflux: 0 ms Distal Thigh: 0.3 cm; Reflux: 0 ms At Knee: 0.2 cm; Reflux: 772 ms Below Knee/Proximl calf: 0.4 cm; Reflux: 0 ms Mid Calf: 0.1 cm; Reflux: 0 ms Distal Calf/Ankle: 0.2 cm; Reflux: 0 ms Lateral accessory GREAT SAPHENOUS VEIN: Saphenofemoral Junction: 0.3 cm; Reflux: 0 ms Mid Thigh: 0.2 cm; Reflux: 0 ms SMALL SAPHENOUS VEIN: Drainage: Thigh Extension Saphenopopliteal Junction: 0.2 cm; Reflux: >2800 ms Mid calf: 0.2 cm; Reflux: 0 ms Distal calf: 0.2 cm; Reflux: 0 ms VEIN OF GIACOMINI: Size: NA Reflux: NA PERFORATORS: Location: Greater saphenous vein, mid calf Size: 0.4 cm Reflux: 0 ms VARICOSITIES > 3mm: Location: Small saphenous vein, proximal Size: 0.5 cm Reflux: 830 ms Location: Great saphenous vein, proximal thigh Size: 0.3 cm Reflux: 0 ms US/US venous duplex LE BI IMPRESSION: Right: There is incompetence in the deep veins involving the femoral and popliteal veins. There is superficial venous incompetence of the great saphenous vein at the ankle, small saphenous vein in the distal calf, metal tile lather, and a varicose vein. Left: Deep vein incompetence involving popliteal vein. Superficial venous incompetence involving great saphenous vein at the knee, small saphenous vein at the SPJ, and in a varicose vein. Electronically signed by: Michael Oviedo MD 06/26/2025 03:24 PM EST
== END 2025-06-26 13:36 | disposition home or self-care (01) ==
LOC: HO.US 13:35
PROVIDERS: PCP Nurse Practitioner Family; Visit Provider Surgery Vascular Surgery
DX: I83.11 Varicose veins of right lower extremity with inflammation (principal)
CPT/HCPCS: 93970

== ENCOUNTER → 2025-06-26 13:36 | Outpatient (BNV) | payer MEDICAID, SELFPAY | PROVIDERS: PCP Nurse Practitioner Family; Visit Provider Radiology Diagnostic Radiology | DX: I87.2 Venous insufficiency (chronic) (peripheral) (principal) | CPT/HCPCS: 93970 ==